=== PATIENT | female | born 1985 | race Caucasian/White ===

== ENCOUNTER 2019-06-13 21:54 | Emergency (ER) | payer OTHER, SELFPAY ==
[2019-06-13 21:58] VITALS: BP 117/64; PULSE 111; RESP 30; TEMP 36.1; O2SAT 100
--- NOTE | 2019-06-13 22:00 | DI.CT.S_ITS ---
PROCEDURE: CT KIDNEY URETER BLADDER (KUB) INDICATIONS: severe right flank pain TECHNIQUE: Noncontrast 5 mm thick sections acquired from the diaphragms to the symphysis. 5 mm thick coronal and sagittal reformats were then performed. For radiation dose reduction, the following was used: automated exposure control, adjustment of mA and/or kV according to patient size. COMPARISON: None. FINDINGS: Image quality: Excellent. Lung bases: Lung bases are clear. Heart size is normal. Urinary system: Both kidneys are normal in size. There are kidney stones, measuring 1-1.5 mm each, within the nondistended collecting system of the left kidney and the mildly distended collecting system of the right kidney. No left-sided hydronephrosis or perinephric fat stranding bilaterally, but there is a mild degree of hydronephrosis on the right.. The left ureter appears non-dilated throughout its expected course, and the right ureter is mildly distended due to a far distal right ureteral stone measuring 2 mm at the ureteral vesicular junction.. Bladder wall thickness is normal; no calcified bladder stones within the bladder lumen. Other solid organs: Liver is normal in size. Gallbladder appears normal. Pancreas is normal in contours. Spleen is normal in size. No adrenal nodules. Peritoneum and bowel: Unenhanced bowel loops demonstrate normal wall thickness and caliber. No free fluid or air. Nodes and vessels: No retroperitoneal or mesenteric adenopathy by size criteria. Aorta and inferior vena cava are normal in caliber. Abdominal wall: No ventral hernias. Pelvis: No free pelvic fluid. No inguinal hernias or adenopathy. Bones: No suspicious bony lesions. No vertebral body compression fractures. IMPRESSION: A total of 3 urinary tract stones are seen, measuring 1-1.5 mm within the collecting system of the kidneys bilaterally, and a single calculus is present within the far distal margin of the right ureter causing mild right hydronephrosis and hydroureter, injuring only 2 mm in diameter. Note: These findings are concordant with the preliminary interpretation. Dictated by: Dwain Ronquillo M.D. on 06/14/2019 at 8:19 Approved by: Dwain Ronquillo M.D. on 06/14/2019 at 8:23
[2019-06-13] MEDS: KETOROLAC 60 MG/2 ML VIAL 15 MG IV (22:17)
[2019-06-13] MEDS: SODIUM CHLORIDE 0.9% 1,000 ML 1000 ML IV (22:18)
[2019-06-13] MEDS: LIDOCAINE 2% 4.8 ML in SODIUM CHLORIDE 0.9% 50 ML 328.8 ML IV (22:18)
[2019-06-13] MEDS: ONDANSETRON 4 MG/2 ML INJ IV (22:18)
[2019-06-13 22:33] VITALS: BP 110/75; PULSE 76; RESP 20; O2SAT 97
[2019-06-13 22:47] LABS: Pregnancy Test Serum,Qual Negative (Negative)
[2019-06-13 22:51] LABS: Add Manual Diff / Slide Review NO; Basophils Absolute Auto 200 /uL (0-100); Eosinophils Absolute Auto 100 /uL (0-450); Eosinophils Percent Auto 1.3 % (2-4); Hematocrit 38.9 % (36-46); Hemoglobin 13.4 g/dL (12.0-16.0); Lymphocytes Absolute Auto 2500 /uL (1100-4500); Lymphocytes Percent Auto 28.5 % (25-40); Mean Corpuscular HGB Conc 34.5 % (30-36); Mean Corpuscular Hemoglobin 29.8 PG (26-34); Mean Corpuscular Volume 86.3 fL (80-100); Monocytes Absolute Auto 500 /uL (0-900); Monocytes Percent Auto 5.6 % (3-14); Neutrophils Absolute Auto 5600 /uL (1500-7000); Neutrophils Percent Auto 62.6 % (50-75); Platelet Count 273 X10^3/uL (150-400); Red Blood Cell Count 4.51 X10^6/uL (4.0-5.2); Red Cell Distribution Width 12.8 % (11.6-14.8); White Blood Cell Count 8.9 X10^3/uL (4.5-11.0)
--- NOTE | 2019-06-13 22:51 | PC.NURSE ---
She told DR Mendenhall she was not sexually active and that there was no way she could be .
[2019-06-13 23:04] LABS: BUN Creatinine Ratio 19.4 (6-22); Blood Urea Nitrogen 13 mg/dL (7-17); Calcium 9.5 mg/dL (8.4-10.2); Carbon Dioxide 22 mmol/L (22-32); Chloride 104 mmol/L (98-107); Estimated Glomerular Filt Rate > 60.0 mL/min (>60); Glucose 129 mg/dL (70-100); HEMOLYSIS < 15 (0-50); Potassium 2.8 mmol/L (3.4-5.1); Sodium 138 mmol/L (137-145)
--- NOTE | 2019-06-13 23:10 | ED_ITS ---
HPI - Abdominal Pain General Chief Complaint: Abdominal Pain Stated Complaint: severe abd pain Time Seen by Provider: 06/13/19 21:55 Source: patient Mode of arrival: Ambulatory Limitations: no limitations History of Present Illness HPI narrative: 33-year-old female nonsmoker with noncontributory medical history presents with a chief complaint of a severe right-sided flank pain that started earlier today. She states it was sudden in onset, started in her back is wrapped around her flank and into her groin. She denies provocation or palliation. She has had no fever or chills admits to difficulty with urination. She denies any history of kidney stones but states her sister just had 1 a few days ago. Her pain is sharp and stabbing and a 10/10 in severity. She has had multiple episodes of vomiting. She is unable to find a position of comfort. MD complaint: flank pain Onset (ago): hour(s) Pain Consistency: constant Location: R flank Severity: severe Severity scale (1-10): 10 Quality: stabbing and sharp Radiation: RLQ Migration to: no migration Relieving factors: nothing Exacerbating factors: nothing Associated symptoms: nausea and vomiting Related Data Patient : No Previous Rx's Medication Instructions Recorded hydrocodone-acetaminophen 1 tab PO Q4-6H PRN #10 tab 06/14/19 ketorolac 10 mg PO Q6H PRN #14 tab 06/14/19 ondansetron 4 mg PO TID-QID PRN #10 tab 06/14/19 Allergies Allergy/AdvReac Type Severity Reaction Status Date / Time No Known Drug Allergies Allergy Verified 06/13/19 22:00 Review of Systems Constitutional Constitutional: Denies chills, Denies fatigue, Denies fever(s), Denies frequent falls, Denies lethargy and Denies weakness Eyes Eyes: Denies change in vision, Denies eye discharge, Denies irritation and Denies loss of vision ENT Ears, Nose, Mouth, and Throat: Denies change in voice, Denies dizziness, Denies neck pain, Denies sore throat and Denies throat swelling Cardiovascular Cardiovascular: Denies chest pain, Denies irregular heart rhythm, Denies lightheadedness, Denies palpitations, Denies dyspnea, Denies dyspnea on exertion and Denies orthopnea Respiratory Respiratory: Denies cough, Denies dyspnea, Denies dyspnea on exertion and Denies wheezing Gastrointestinal Gastrointestinal: Reports abdominal pain, Denies change in bowel habits, Denies diarrhea, Reports nausea and Reports vomiting Genitourinary Genitourinary: Denies hematuria, Denies flank pain, Denies urinary incontinence and Denies urinary urgency Musculoskeletal Musculoskeletal: Denies back pain, Denies muscle weakness, Denies neck pain, Denies numbness and Denies tingling Integumentary/Breasts Skin/Breast: Denies pruritus, Denies erythema, Denies rash and Denies wounds Neurologic Neurologic: Denies behavioral changes, Denies confusion, Denies dizziness, Denies frequent falls, Denies loss of vision, Denies numbness, Denies tingling and Denies weakness Psychiatric Psychiatric: Denies anxiety, Denies behavioral changes, Denies confusion, Denies depression, Denies homicidal ideation and Denies suicidal ideation Endocrine Endocrine: Denies fatigue, Denies flushing and Denies palpitations Hematologic/Lymphatic Hematologic/Lymphatic: Denies easy bruising Allergic/Immunologic Allergic/Immunologic: Denies urticaria, Denies throat swelling and Denies wheezing Patient History Social History Smoking Status: Never smoker Smoking Status: Never smoker Exam Narrative Exam Narrative: GENERAL: [33] year old patient appears stated age. Well- nourished, well-developed patient, in significant pain, pacing, obviously hurting badly HEAD: Atraumatic. Normocephalic. EYES: Pupils equal round and reactive. Extraocular motions intact. No scleral icterus. No injection or drainage. ENT: Nose without bleeding, purulent drainage. Throat without erythema, tonsillar hypertrophy or exudate. Airway patent. NECK: Trachea midline. Non tender CARDIOVASCULAR: Regular rate and rhythm without murmurs, gallops, or rubs. RESPIRATORY: Clear to auscultation. Breath sounds equal bilaterally. No wheezes, rales, or rhonchi. GASTROINTESTINAL: Abdomen soft, non-tender, nondistended. EXTREMITIES: No edema or joint tenderness. BACK: Nontender without deformity or crepitance. No flank tenderness. NEURO: AOx3. SKIN: No rash or erythema of visible areas Initial Vital Signs Initial Vital Signs: Vital Signs Temperature 97.0 F L 06/13/19 21:58 Pulse Rate 111 H 06/13/19 21:58 Respiratory Rate 30 H 06/13/19 21:58 Blood Pressure 117/64 06/13/19 21:58 Pulse Oximetry 100 06/13/19 21:58 Course Course Course Narrative: significant improvement after above stated therapies Orders Ordered: ED Orders 06/13/19 22:00 CT kidney ureter bladder (KUB) Stat 06/13/19 22:15 Basic Metabolic Panel Stat Complete Blood Count AUTO DIFF Stat Test Serum,Qual Stat 06/14/19 00:30 Potassium Stat Discontinued Medications Hydrocodone Bitart/Acetaminophen (Vicodin 5/325 Prepack) 1 bottle MISC SEEINSTR ONE Stop: 06/14/19 00:03 Last Admin: 06/14/19 01:22 Dose: 1 bottle Documented by: ARNULFO Hydromorphone HCl (Dilaudid) 0.5 mg IV NOW ONE Stop: 06/13/19 23:35 Last Admin: 06/13/19 23:39 Dose: 0.5 mg Documented by: ARNULFO Hydromorphone HCl (Dilaudid) 0.5 mg IV NOW ONE Stop: 06/14/19 00:16 Last Admin: 06/14/19 00:18 Dose: 0.5 mg Documented by: ARNULFO Sodium Chloride (Normal Saline 0.9%) 1,000 mls @ 1,000 mls/hr IV BOLUS ONE Stop: 06/13/19 22:58 Last Admin: 06/13/19 22:18 Dose: 1,000 mls/hr Documented by: NAZARIO Lidocaine HCl 4.8 ml/ Sodium (Chloride) 54.8 mls @ 328.8 mls/hr IV NOW ONE Stop: 06/13/19 22:00 Last Infusion: 06/13/19 22:28 Dose: 0 mls/hr Documented by: Admin: 06/13/19 22:18 Dose: 328.8 mls/hr Documented by: NAZARIO Potassium Chloride 20 meq/ (Sodium Chloride) 260 mls @ 130 mls/hr IV NOW ONE Stop: 06/14/19 01:07 Last Infusion: 06/14/19 01:45 Dose: 0 mls/hr Documented by: ARNULFO Cosigned by: MARIANO Admin: 06/13/19 23:35 Dose: 130 mls/hr Documented by: ARNULFO Cosigned by: MARIANO Ketorolac Tromethamine (Toradol) 15 mg IV NOW ONE Stop: 06/13/19 22:00 Last Admin: 06/13/19 22:17 Dose: 15 mg Documented by: NAZARIO Ondansetron HCl (Zofran) 4 mg IV Q4HR PRN PRN Reason: Nausea And Vomiting Last Admin: 06/13/19 22:18 Dose: 4 mg Documented by: NAZARIO Ondansetron HCl (Zofran Odt Prepack) 1 bottle MISC SEEINSTR ONE Stop: 06/14/19 00:03 Last Admin: 06/14/19 01:22 Dose: 1 bottle Documented by: ARNULFO Potassium Chloride (Potassium Chloride) 40 meq PO NOW ONE Stop: 06/13/19 23:09 Last Admin: 06/13/19 23:35 Dose: 40 meq Documented by: ARNULFO Vital Signs Vital signs: Vital Signs - 8 hr 06/13/19 21:58 06/13/19 22:33 06/13/19 23:25 Temperature 97.0 F L Pulse Rate 111 H 76 94 H Respiratory Rate 30 H 20 20 Blood Pressure 117/64 Blood Pressure [Left Arm] 110/75 108/69 Pulse Oximetry 100 97 97 06/14/19 00:06 06/14/19 01:46 Temperature Pulse Rate 92 H 88 Respiratory Rate 18 18 Blood Pressure 105/64 Blood Pressure [Left Arm] 103/61 Pulse Oximetry 97 98 MDM - Abdominal Pain Lab Data Result diagrams: 06/13/19 22:15 06/14/19 00:30 Labs: Lab Results 06/13/19 06/13/19 06/13/19 Range/Units 22:15 22:15 22:15 WBC 8.9 (4.5-11.0) X10^3/uL RBC 4.51 (4.0-5.2) X10^6/uL Hgb 13.4 (12.0-16.0) g/dL Hct 38.9 (36-46) % MCV 86.3 (80-100) fL MCH 29.8 (26-34) PG MCHC 34.5 (30-36) % RDW 12.8 (11.6-14.8) % Plt Count 273 (150-400) X10^3/uL Neut % (Auto) 62.6 (50-75) % Lymph % (Auto) 28.5 (25-40) % [place] % (Auto) 5.6 (3-14) % Eos % (Auto) 1.3 L (2-4) % Baso % (Auto) 2.0 (0-2) % Neut # (Auto) 5600 (7951-6914) /uL Lymph # (Auto) 2500 (8535-0381) /uL [place] # (Auto) 500 (0-900) /uL Eos # (Auto) 100 (0-450) /uL Baso # (Auto) 200 H (0-100) /uL Sodium 138 (137-145) mmol/L Potassium 2.8 L (3.4-5.1) mmol/L Chloride 104 (98-107) mmol/L Carbon Dioxide 22 (22-32) mmol/L BUN 13 (7-17) mg/dL Creatinine 0.67 (0.52-1.04) mg/dL Estimated GFR > 60.0 (>60) mL/min BUN/Creatinine Ratio 19.4 (6-22) Glucose 129 H (70-100) mg/dL Calcium 9.5 (8.4-10.2) mg/dL Serum , Qual Negative (Negative) 06/14/19 Range/Units 00:30 WBC (4.5-11.0) X10^3/uL RBC (4.0-5.2) X10^6/uL Hgb (12.0-16.0) g/dL Hct (36-46) % MCV (80-100) fL MCH (26-34) PG MCHC (30-36) % RDW (11.6-14.8) % Plt Count (150-400) X10^3/uL Neut % (Auto) (50-75) % Lymph % (Auto) (25-40) % [place] % (Auto) (3-14) % Eos % (Auto) (2-4) % Baso % (Auto) (0-2) % Neut # (Auto) (3610-8107) /uL Lymph # (Auto) (6550-5891) /uL [place] # (Auto) (0-900) /uL Eos # (Auto) (0-450) /uL Baso # (Auto) (0-100) /uL Sodium (137-145) mmol/L Potassium 4.2 D (3.4-5.1) mmol/L Chloride (98-107) mmol/L Carbon Dioxide (22-32) mmol/L BUN (7-17) mg/dL Creatinine (0.52-1.04) mg/dL Estimated GFR (>60) mL/min BUN/Creatinine Ratio (6-22) Glucose (70-100) mg/dL Calcium (8.4-10.2) mg/dL Serum , Qual (Negative) Point of care testing: Urine Dip Bedside Urine Glucose Negative Bedside Urine Bilirubin - Negative Bedside Urine Ketone ++ 40 Urine Specific [place] 1.015 Bedside Urine Occult Blood + Bedside Urine pH 8.5 Bedside Urine Protein - Negative Bedside Urine Urobilinogen - Negative Bedside Urine Nitrite - Negative Bedside Urine Leukocytes - Negative Esterase Imaging Data CT scan - abdomen/pelvis: Radiologist's Impression: 2mm obstructing right UVJ stone Discharge Plan Departure Patient Disposition: Home Clinical Impression: Calculus of kidney, Acute hypokalemia Discharge Date/Time: 06/14/19 01:47 Instructions: DI for Kidney Stones Activity Restrictions/Additional Instructions: *You have been diagnosed with [acute right-sided kidney stone with low potassium] *What to do: *Take medications as directed *Follow up with your primary care provider in 2-3 days, call for an appointment. Let them know you were seen in the Emergency Department and that we ask that you be seen in follow up *Return to ER if you should have any new, worsening or concerning symptoms Prescriptions: New hydrocodone-acetaminophen 5-325 mg tablet 1 tab PO Q4-6H PRN (Reason: pain) Qty: 10 RF: 0 ketorolac 10 mg tablet 10 mg PO Q6H PRN (Reason: pain) Qty: 14 RF: 0 ondansetron 4 mg tablet,disintegrating 4 mg PO TID-QID PRN (Reason: nausea and vomiting) Qty: 10 RF: 0 Referrals: Jose Armando Basilio MD [Physician] -
[2019-06-13 23:25] VITALS: BP 108/69; PULSE 94; RESP 20; O2SAT 97
[2019-06-13] MEDS: POTASSIUM CHLORIDE 20 MEQ/15 ML UDC 40 MEQ PO (23:35)
[2019-06-13] MEDS: POTASSIUM CHLORIDE 20 MEQ in SODIUM CHLORIDE 0.9% 250 ML 130 ML IV (23:35)
[2019-06-13] MEDS: HYDROMORPHONE 0.5 MG INJ IV (23:39)
[2019-06-14 00:06] VITALS: BP 103/61; PULSE 92; RESP 18; O2SAT 97
[2019-06-14] MEDS: HYDROMORPHONE 0.5 MG INJ IV (00:18)
[2019-06-14 00:45] LABS: HEMOLYSIS < 15 (0-50); Potassium 4.2 mmol/L (3.4-5.1)
[2019-06-14] MEDS: HYDROCODONE/ACET 5/325 PREPACK 1 BOTTLE MISC (01:22)
[2019-06-14] MEDS: ONDANSETRON 4 MG ODT PREPACK 1 BOTTLE MISC (01:22)
[2019-06-14 01:46] VITALS: BP 105/64; PULSE 88; RESP 18; O2SAT 98
== END 2019-06-14 01:47 | disposition home or self-care (01) ==
PROVIDERS: Emergency Provider Emergency Medicine
DX: N20.0 Calculus of kidney (principal); E87.6 Hypokalemia
CPT/HCPCS: 36415; 74176; 80048; 81003; 84132; 84703; 85025; 96365; 96366; 96375; 96376; 99284; J1170; J1885; J2405; J3480

== ENCOUNTER → 2020-06-04 09:47 | Outpatient (CLI) | payer OTHER, SELFPAY ==
[2020-06-04 11:08] LABS: Add Manual Diff / Slide Review NO; Basophils Absolute Auto 0 /uL (0-100); Basophils Percent Auto 0.8 % (0-2); Eosinophils Absolute Auto 100 /uL (0-450); Eosinophils Percent Auto 1.2 % (2-4); Lymphocytes Absolute Auto 1900 /uL (1100-4500); Lymphocytes Percent Auto 32.1 % (25-40); Mean Corpuscular HGB Conc 34.2 % (30-36); Mean Corpuscular Hemoglobin 29.7 PG (26-34); Mean Corpuscular Volume 86.8 fL (80-100); Monocytes Absolute Auto 300 /uL (0-900); Monocytes Percent Auto 4.7 % (3-14); Neutrophils Absolute Auto 3600 /uL (1500-7000); Neutrophils Percent Auto 61.2 % (50-75); Platelet Count 278 X10^3/uL (150-400); Red Blood Cell Count 4.73 X10^6/uL (4.0-5.2); Red Cell Distribution Width 12.8 % (11.6-14.8); White Blood Cell Count 5.8 X10^3/uL (4.5-11.0)
[2020-06-04 11:24] LABS: Erythrocyte Sedimentation Rate 5 MM/HR (0-20)
[2020-06-04 11:34] LABS: Vitamin D 25 Hydroxy (D3) 52.4 ng/mL (30.0-100.0)
[2020-06-04 11:46] LABS: C-Reactive Protein Quant < 0.5 mg/dL (<1.0)
[2020-06-04 11:56] LABS: TSH w/ Reflex to FT4 0.61 uIU/mL (0.47-4.68)
== END ==
PROVIDERS: PCP Registered Nurse Diabetes Educator; Referring Provider Registered Nurse Diabetes Educator; Visit Provider Registered Nurse Diabetes Educator
DX: R53.83 Other fatigue (principal)
CPT/HCPCS: 36415; 82306; 84443; 85025; 85651; 86140